=== PATIENT | female | born 1990 | race Caucasian/White ===

== ENCOUNTER 2025-06-06 10:17 | Emergency (ER) | payer OTHER, MEDICAID, SELFPAY ==
[2025-06-06] VITALS (22 sets, daily range): BP systolic 113–135; BP diastolic 79–91; PULSE 57–91; RESP 16–18; TEMP 36.8; O2SAT 96–100; BMI 30.4
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
[2025-06-06] MEDS: ONDANSETRON 2 MG/ML inj 4 MG IVP (10:51)
--- OUTSIDE RECORDS SUMMARY | 2025-06-06 11:11 | XMS_ITS | Clinical Summary ---
Author Organization [facility] Address [address] [place] [address] Care Team Providers Care Campaign Specialist Name Role Phone Edith Harman DO Primary Care Provider [phone] Zoraida Rendon MBBS Unavailable [phone] Allergies No known active allergies Medications ondansetron (ZOFRAN ODT) 4 mg disintegrating tabletIndications: Migraine with aura and without status migrainosus, not intractable Place 1 Tablet (4 mg) on the tongue every 8 hours if needed for Nausea/Vomiting. 30 Tablet 08/04/20 23 Active fremanezumab-vfrm (Ajovy Autoinjector) 225 mg/1.5 mL subcutaneous pen Inject 225 mg subcutaneous every 4 weeks. Do not shake. Administer in abdomen, thigh, or upper arm. Active fremanezumab-vfrm (AJOVY) 225 mg/1.5 mL subcutaneous penIndications:Helio lemuel without aura and with status migrainosus, not intractable Inject 1.5 mL (225 mg) subcutaneous every 4 weeks. Do not shake. Administer in abdomen, thigh, or upper arm. 3 Each 3 10/04/19 25 Active SUMAtriptan (IMITREX) 50 mg tabletIndications: Migraine without aura and with status migrainosus, not intractable,Migrai ne with aura, not intractable, without status migrainosus Take 1 Tablet (50 mg) by mouth 2 times daily if needed for Migraine. Give at minimum 2hrs apart. Max Dose: 200mg per 24hrs. 10 Tablet 3 10/04/19 25 Active durable medical equipment (DME)Indications:S prain of anterior talofibular ligament of left ankle, subsequent encounter,High ankle sprain of left lower extremity, subsequent encounter Medium ASO 02/15/20 25 Active CPAPIndications:OS A (obstructive sleep apnea) CPAP (E0601) at 5-20 (EPR 3). Heated Humidifier (E0562), Choice of mask (A7030 or A7034) w/full face cushion (A7031) x1/mo, nasal cushion (A7032) x2/mo, or nasal pillows (A7033) x 2/mo; headgear (A7035), standard tubing (A7037), or heated tubing (A4604); Water chamber (A7046); filter(s) disposable (A7038) or nondisposable (A7039); all needed repairs (E1399), temp rental for lifetime (K0462), Labor lifetime (K0739) Length of Need: 99 months; Frequency of use: Daily 1 Each 11 04/18/20 25 Active albuterol HFA (PRO-AIR; VENTOLIN; PROVENTIL) 90 mcg/actuation inhalerIndications :Acute cough Inhale 1-2 Puffs by mouth every 4 hours if needed for Shortness Of Breath or Wheezing. 3 Each 3 06/05/20 25 Active codeine-guaiFENesi n 10-100 mg/5 mL liquidIndications: Acute cough Take 5 mL by mouth every 4 hours if needed for Cough. 100 mL 06/05/20 25 Active Active Problems Problem Noted Date Diagnosed Date Tobacco use 09/07/2023 Bipolar disorder 08/04/2023 Overview (03/07/2025): AI Summary: The patient's history included bipolar disorder, which was diagnosed at a young age, and the patient was attending therapy sessions at [facility] as of 06/26/2024. Mirtazapine and olanzapine were prescribed on 08/04/2023 for bipolar affective disorder, remission status unspecified. Recent encounter dx: 09/27/24: [facility] 09/19/24: Appointment - [facility] 09/12/24: [facility] 09/12/24: Appointment - [facility] 09/07/23: Appointment - [facility] Recent notes: 11/25/24: Progress Notes by ABISAI Fischer ... [+] ? Bipolar disorder (HC) F31.9 10/23/24: Progress Notes by Edith Harman DO ... [+] ? Bipolar disorder (HC) 09/27/24: Initial Assessments - Physical Therapy - Outpatient Initial Assessment by Lois Kaur, SHANTANU ... [-] List Comorbidities influencing the plan of care: Psychiatry Bipolar disorder (HC) Depression PTSD (post-traumatic stress disorder) Fibromyalgia 09/19/24: Progress Notes - [facility] Note by Manuel Kelley DPM ... [+] ? Bipolar affective disorder, remission status unspecified (HC) 09/12/24: Progress Notes - [facility] Note by Manuel Kelley DPM ... [+] Bipolar affective disorder, remission status unspecified (HC) F31.9 AMB FOLLOWUP APPT Depression 08/04/2023 Fibromyalgia 08/04/2023 Migraine 08/04/2023 PCOS (polycystic ovarian syndrome) 08/04/2023 PTSD (post-traumatic stress disorder) 08/04/2023 Encounters Date Type Department Care Team Description 06/05/2025 12:30 PM CDT Office Visit [facility] [place] [address] [place] [phone] Fatou Cazares, MULTIPLE LAUNCH ROCKET SYSTEM CREWMEMBER Throat Problem 06/05/2025 Travel 04/25/2025 Telephone [facility] AISHWARYA Munoz [address] [place] [phone] Stacie Anand, PT 04/22/2025 Refill [facility] [place] [facility] [address] [place] [address] Arias Mcdaniel MD Refill Request (Ajovy Autoinjector) 04/16/2025 Telephone [facility] AISHWARYA Munoz [address] [place] [address] Rodri Hong, PT Failed Appointment 04/06/2025 1:15 PM CDT Office Visit [facility] [address] [place] [address] Junior Yang MD Follow Up (Sprain of anterior talofibular ligament of left ankle, subsequent encounter) 04/05/2025 Travel 04/02/2025 Procedure Only [facility] [address] [facility] [place] [phone] Asaf Overton MD Results (HST WatchPAT) 03/28/2025 4:30 PM CDT Nurse/Clinic Staff Only [facility] [address] [place] [address] Testing (WatchPAT accounts receivable specialist) 03/28/2025 1:09 PM CDT - 03/28/2025 11:59 PM CDT Hospital Encounter [facility] [address] [place] [address] Junior Yang MD Baker, Joshua, PT 03/28/2025 Travel 03/26/2025 3:15 PM CDT Orders Only [facility] [address] [place] [address] Lab, [facility] 03/26/2025 Travel 03/23/2025 Travel 03/21/2025 12:11 PM CDT - 03/21/2025 11:59 PM CDT Hospital Encounter [facility] [address] [place] [address] Junior Yang MD Mueller, Laura C, PT 03/21/2025 Travel 03/14/2025 1:54 PM CDT - 03/14/2025 11:59 PM CDT Hospital Encounter [facility] AISHWARYA [place]oz [address] [place] [address] Junior Yang MD Baker, Joshua, PT 03/14/2025 Travel 03/07/2025 8:40 AM CDT Office Visit [facility] [address] [place] [address] Edith Harman DO Form ([facility] nursing) 03/07/2025 Travel from Last 3 Months Immunizations Immunization Administration Dates Next Due COVID-19 VACCINE SPIKEVAX (M ODERNA 50MCG/0.5ML) 12YO+ PFS 06/26/2024 INFLUENZA, IIV3 PF (AGE >= 6 MO) 06/26/2024 Influenza, IIV4 08/04/2023 Tdap 2017 Family History Medical History Relation Name Comments Diabetes type II Father Hyperlipidemia Father Hypertension Father Cervical cancer Mother Diabetes type II Mother Heart attack Mother Hyperlipidemia Mother Hypertension Mother Relation Name Status Comments Father Mother Social History Tobacco Use Types Packs/Day Years Used Date Smoking Tobacco: Every Day Cigarettes 0.5 14.8 Started: 2010 Smokeless Tobacco: Never Tobacco Cessation:Ready to Q uit: No; Counseling Given: Yes Comments:trying to ween down- 09/06/2023 Alcohol Use Standard Drinks/Week Comments Not Currently 0 (1 standard drink = 0.6 oz pur e alcohol) 2014 PHQ-2 Answer Date Recorded PHQ-2 TOTAL SCORE 0 10/23/2024 Social Connections Answer Date Recorded Do you often feel lonely or isolated from those around you? 0 08/29/2024 Financial Resource Strain Answer Date R ecorded Difficulty of Paying Living Expenses 3 08/29/2024 Difficulty of Paying Living Expenses Not on file 08/29/2024 Food Insecurity Answer Date Recorded Do you worry your food will run out before you are able to buy more? 1 08/29/2024 Transportation Needs Answer Date Record ed Does lack of transportation keep you from medica l appointments? 1 08/29/2024 Does lack of transportation keep you from work, meetings or getting things that you need? 1 08/29/2024 Housing Stability Answer Date Recorded What is your housing situation today? 1 08/29/2024 Interpersonal Safety Answer Date Record ed Are you being hit, kicked, p ushed or yelled at (see row info)? No 12/18/2024 Interpersonal Safety Abuse 12 - 18 Not on file 12/18/2024 Interpersonal Safety Ambulatory Vulnerability No t on file 12/18/2024 Utilities Answer Date Recorded Do you have trouble paying f or utilities (for example, heat, electricity, water, phone)? 1 08/29/2024 Comments No Sex and Gender Information Value Date Recorded Sex Assigned at Not on file Legal Sex Female 11:26 AM HOME TEACHING GRADES 9 THRU 12 TEACHER Gender Identity Not on file Sexual Orientation Not on file Obstetrics History Para Term AB IAB SAB Ectopic Multiple Livin g Live Births 7 2 2 5 2 Date Outcome GA Total Labor Labor/2nd/3rd Weight Sex Type Anes PTL Jacqui A1 A5 Name Clin Term Term AB AB AB AB AB Comments 2018 2010 Last Filed Vital Signs Vital Sign Reading Time Taken Comments Blood Pressure 116/80 06/05/2025 12:40 PM CDT Pulse 70 06/05/2025 12:40 PM CDT Temperature 36.6 C (97.8 F) 06/05/2025 12:40 PM CDT Respiratory Rate 18 06/05/2025 12:40 PM CDT Oxygen Saturation 100% 06/05/2025 12:40 PM CDT Inhaled Oxygen Concentration - - Weight 94.8 kg (209 lb) 06/05/2025 12:40 PM CDT Height 172.4 cm (5' 7.87) 03/07/2025 8:48 AM CD T Body Mass Index 31.9 03/07/2025 8:48 AM CDT Plan of Treatment Upcoming Encounters Date Type Department Care Team (Late st Contact Info) Description 06/17/2025 1:15 PM HOME TEACHING GRADES 9 THRU 12 TEACHER Nurse/Clinic Staff Only [facility] [address] [place] [address] 08/22/2025 2:00 PM HOME TEACHING GRADES 9 THRU 12 TEACHER Telemedicine [facility] [address] [place] [phone] Ariana Morgan NP [address] [place] [address] Health Maintenance Due Date Last Done Comments Hepatitis B series for 19+ ( 1 of 3 - 19+ 3-dose series) 2011 Pneumococcal series for age 6-49 (1 of 2 - PCV) 2011 HPV series for age 9-45 (1 - 3-dose SCDM series) 2019 Influenza Vaccine (#1) 2025 06/26/2024, 2022 Depression screening for age 12+ 10/25/2025 10/25/2024, 10/23/2024, 10/23/2024, Additional history exists BMI (ht and wt on same day) for age 18+ 03/07/2026 03/07/2025, 06/26/2024, 04/27/2024, Additional history exists Tetanus booster 2027 2017 RSV vaccine for adults or (1 - 1-dose 75+ series) 2067 HIV for age 15-65 Completed 10/23/2024, 09/09/2023 Hepatitis C screening for ag e 18-79 Completed 10/23/2024, 09/09/2023 Procedures Procedure Name Priority Date/Time Associated Diagnosis Comments CBC WITH AUTO DIFFERENTIAL Routine 06/05/2025 1:06 PM CDT Upper respiratory tract infection, unspecified type CBC WITH AUTO DIFFERENTIAL Routine 06/05/2025 1:06 PM CDT Upper respiratory tract infection, unspecified type ISTAT CHEM 8 Routine 06/05/2025 1:06 PM CDT Upper respiratory tract infection, unspecified type STREP A PCR Routine 06/05/2025 12:43 PM CDT Upper respiratory tract infection, unspecified type THROAT RAPID STREP ONLY CLINIC Routine 06/05/2025 12:43 PM CDT Upper respiratory tract infection, unspecified type INFLUENZA A/B PCR Routine 06/05/2025 12: 40 PM CDT Upper respiratory tract infection, unspecified type COVID-19 MOLECULAR Routine 06/05/2025 12 :40 PM CDT Upper respiratory tract infection, unspecified type HOME SLEEP TEST TYPE 3 PORTABLE Routine 04/02/2025 11:59 PM CDT Snoring Daytime somnolence At risk for obstructive sleep apnea Obesity (BMI 30-39.9) QUANTIFERON -TB GOLD PLUS 1 TUBE ([facility]) Routine 03/26/2025 3:11 PM CDT Encounter for TB mary test ANTI HIV 1/2 Routine 10/23/2024 9:37 AM CDT Screen for STD (sexually transmitted disease) ANTI HCV Routine 10/23/2024 9:37 AM CDT Screen for STD (sexually transmitted disease) from Last 3 Months or Most Recently Relevant to Health Maintenance Results * CBC WITH AUTO DIFFERENTIAL (06/05/2025 1:06 PM CDT) [facility] WHITE BLOOD CELL COUNT 9.6 3.8 - 10.8 Thousand/u L 06/05/2025 1:28 PM CDT [facility] RED BLOOD CELL COUNT 4.62 3.80 - 5.10 Million/uL 06/05/2025 1:28 PM CDT [facility] HEMOGLOBIN 13.4 11.7 - 15.5 g/dL 06/05/2025 1:28 PM CDT [facility] HEMATOCRIT 41.1 35.0 - 45.0 % 06/05/2025 1:28 PM CDT [facility] MCV 89.0 80.0 - 100.0 fL 06/05/2025 1:28 PM CDT [facility] MCH 29.0 27.0 - 33.0 pg 06/05/2025 1:28 PM CDT [facility] MCHC 32.6 32.0 - 36.0 g/dL 06/05/2025 1:28 PM CDT [facility] Comment: For adults, a slight decrease in the calculated MCHC value (in the range of 30 to 32 g/dL) is most likely not clinically significant; however, it should be interpreted with caution in correlation with other red cell parameters and the patient's clinical condition. RDW 12.1 11.0 - 15.0 % 06/05/2025 1:28 PM CDT [facility] PLATELET COUNT 296 140 - 400 Thousand/u L 06/05/2025 1:28 PM CDT [facility] MPV 10.5 7.5 - 12.5 fL 06/05/2025 1:28 PM CDT [facility] NEUTROPHILS 61.7 % 06/05/2025 1:28 PM CDT [facility] LYMPHOCYTES 28.7 % 06/05/2025 1:28 PM CDT [facility] MONOCYTES 6.7 % 06/05/2025 1:28 PM CDT [facility] EOSINOPHILS 2.6 % 06/05/2025 1:28 PM CDT [facility] BASOPHILS 0.3 % 06/05/2025 1:28 PM CDT [facility] ABSOLUTE NEUTROPHILS 5923 1500 - 7800 cells/uL 06/05/2025 1:28 PM CDT [facility] ABSOLUTE LYMPHOCYTES 2755 850 - 3900 cells/uL 06/05/2025 1:28 PM CDT [facility] ABSOLUTE MONOCYTES 643 200 - 950 cells/uL 06/05/2025 1:28 PM CDT [facility] ABSOLUTE EOSINOPHILS 250 15 - 500 cells/uL 06/05/2025 1:28 PM CDT [facility] ABSOLUTE BASOPHILS 29 0 - 200 cells/uL 06/05/2025 1:28 PM CDT [facility] Blood BLOOD SPECIMEN / Unknown [facility] / Unknown 06/05/2025 1:06 PM CDT 06/05/2025 1:22 PM CDT Fatou Cazares MULTIPLE LAUNCH ROCKET SYSTEM CREWMEMBER HEMATOLOGY Final Result [facility] [address] [place] [address], [place] [phone] [facility] [address] [place] [address], [place] [phone] * (ABNORMAL) ISTAT CHEM 8 BMP (06/05/2025 1:06 PM CDT) POCT, SODIUM, ISTAT 140 138 - 146 mmol/L 06/05/2025 1:16 PM CDT [facility] POCT, POTASSIUM, ISTAT 3.8 3.5 - 4.9 mmol/L 06/05/2025 1:16 PM CDT [facility] POCT, CHLORIDE, ISTAT 103 98 - 109 mmol/L 06/05/2025 1:16 PM CDT [facility] POCT, CARBON DIOXIDE, ISTAT 23(L) 24 - 29 mmol/L 06/05/2025 1:16 PM CDT [facility] POCT, GLUCOSE ISTAT 92 70 - 105 mg/dL 06/05/2025 1:16 PM CDT [facility] POCT, CALCIUM, IONIZED, ISTAT 5.1 4.5 - 5.3 mg/dL 06/05/2025 1:16 PM CDT [facility] POCT, UREA NITROGEN (BUN) ISTAT 8 8 - 26 mg/dL 06/05/2025 1:16 PM CDT [facility] POCT,CREATININE , ISTAT 0.8 0.6 - 1.3 mg/dL 06/05/2025 1:16 PM CDT [facility] Blood BLOOD SPECIMEN / Unknown [facility] / Unknown 06/05/2025 1:06 PM CDT 06/05/2025 1:06 PM CDT Fatou Cazares NP CHEMISTRY Final Result [facility] [address] [place] [address], [place] [phone] [facility] [address] [place] [address], [place] [phone] * STREP A PCR (06/05/2025 12:43 PM CDT) Pathologist [facility] GROUP A STREP Negative 06/05/2025 7:11 PM CDT [facility] Throat SPECIMEN FROM THROAT / Unknown Non-Blood / Unknown 06/05/2025 12:43 PM CDT 06/05/2025 2:07 PM CDT us Fatou Cazares NP MICROBIOLOGY Final Result [facility] [address] [place] [address], [place] * POCT Throat Rapid Strep (06/05/2025 12:43 PM CDT) Pathologist [facility] POC, GROUP A STREP NOT DETECTED NOT DETECTED 06/05/2025 2:15 PM CDT [facility] Comment: The [place] [employer] recommends that a throat culture be performed if a rapid group A streptococcus assay yields a negative result. [email or web address] recommends Streptococcus, Group A culture. Throat SPECIMEN FROM THROAT / Unknown Non-Blood / Unknown 06/05/2025 12:43 PM CDT 06/05/2025 2:06 PM CDT Fatou Cazares NP MICROBIOLOGY Final Result [facility] [address] [address], [place] [phone] [facility] [address] [place] [address], [place] [phone] * COVID-19 MOLECULAR (06/05/2025 12:40 PM CDT) [facility] COVID 19 [facility] MOLECULAR Negative Negative 06/06/2025 12:44 AM CDT [facility]- NTRAL LABORATORY TESTING LABORATORY [facility] 06/06/2025 12:44 AM CDT [facility] Comment:Specimen submitted t o [facility] for testing. Other SPECIMEN FROM NASAL FOSSAE / Unknown Non-Blood / Unknown 06/05/2025 12:40 PM CDT 06/05/2025 2:07 PM CDT Narrative [facility] - 06/06/2025 12:44 AM CDT All PCR tests are subject to false negative result due to variability in viral load and collection technique. A negative result does not rule out a SARS-CoV-2 infection. Clinical correlation required. Fatou Cazares NP MICROBIOLOGY Final Result Performing Organization Address [facility] Co de Phone Number [facility] [address] [place] [address], * INFLUENZA A/B PCR (06/05/2025 12:40 PM CDT) INFLUENZA A PCR Negative 06/06/2025 12:44 AM CDT [facility] INFLUENZA B PCR Negative 06/06/2025 12:44 AM CDT [facility] Other SPECIMEN FROM NASAL FOSSAE / Unknown Non-Blood / Unknown 06/05/2025 12:40 PM CDT 06/05/2025 2:07 PM CDT Fatou Cazares NP MICROBIOLOGY Final Result Performing Organization Address [facility] Co de Phone Number [facility] [address] [address], [place] * HOME SLEEP TEST TYPE 3 PORTABLE (04/02/2025 11:59 PM CDT) Narrative Asaf Overton MD - 04/02/2025 11:59 PM CDT Asaf Overton MD 04/13/2025 9:49 AM Home Sleep Test Name: Bessy Pickard : 1990 Gender: Female BMI: 32.2 (W=205 lb, H=5' 7'') Study Date: 04/02/2025 Location: [facility] Study notes: This is a single night home sleep apnea test. The study is performed in the context of a clinical suspicion for sleep apnea. Bessy Pickard (1990) is studied using a WatchPAT Device with monitoring of PAT (peripheral arterial tone), pulse rate, pulse oximetry, actigraphy, respiratory effort, body position, and snoring. The study is scored by a RPSGT and interpreted by a Diplomate of the [place] Board [employer]. Review of the raw data has been performed by the interpreting physician. Scored following the most current version of the AASM Manual for the Scoring of Sleep and Associated Events. Start Study Time: 10:16:48 PM End Study Time: 6:30:44 AM Total Study Time: 8 hrs, 13 min Estimated Sleep Time: 7 hrs, 20 min Technically Valid Sleep Time: 7 hrs, 19 min. Estimated Sleep Latency (min): 19 Estimated % Sleep Time in REM: 35.5% Sleep Summary Oxygen Saturation Statistics Mean Saturation: 95% Minimum: 87% Time below <88: 0.1, 0.0% Respiratory Indices pAHI 3%: 8.3 pAHI 4%: 4.7 pAHIc: 0.0 KIMI: 3.6 LOADER SEMICONDUCTOR DIES(%): 0.0 Additional Comments: None IMPRESSION Obstructive Sleep Apnea (327.23, G47.33) RECOMMENDATIONS: - A pRDI and/or pAHI3% is not accepted by all payors, including Medicare. - Mild sleep apnea is discovered. If there is low clinical suspicion of sleep apnea, this could be a false positive. Polysomnography could be considered. - Mild sleep apnea only needs treatment in the presence of attributable sleepiness. In the absence of symptoms, treatment may not be indicated. Clinical correlation is recommended. - Treatment options for mild sleep apnea include CPAP, a mandibular advancement device, lifestyle modifications such as weight loss, sedative/alcohol avoidance, avoiding supine sleep and surgical therapies can be considered in highly selected patients. - Consider a health weight referral for patients with a BMI > 30. - Follow-up with a provider to discuss results is recommended. - Patients should be advised to avoid critical tasks, such as driving, whenever drowsy. - Patients should try to achieve at least 7-8 hours of sleep on a consistent basis. Asaf Overton MD .................... 04/13/2025 9:49 AM Diplomate, Board of Sleep Medicine Oxygen Saturation: <90 - 0.5 minutes, 0.1% <88 - 0.1 minutes, 0.0% <85 - 0.0 minutes, 0.0% <80 - 0.0 minutes, 0.0% <70 - 0.0 minutes, 0.0% Oxygen Desaturation (number of events): 4-9% - 26 events 10-20% - 0 events >20% - 0 events Respiratory Indices pAHI 3%: All Night - 8.3 REM - 17.0 NonREM - 3.6 Total Events - 61 pAHI 4%: All Night - 4.7 pAHIc: All Night - 0.0 REM - 0.0 NonREM - 0.0 Total Events - 0 KIMI: All Night - 3.6 REM - 6.6 NonREM - 1.9 Total Events - 26 LOADER SEMICONDUCTOR DIES(%): 0.0 Pulse Rate Statistics during Sleep (BPM) Mean: 74 Minimum: 55 Maximum: 112 Body Position Statistics Supine Sleep time(min): 420.5 Sleep time (%): 95.4 pAHI: 8.3 KIMI: 3.7 Prone Sleep time(min): 3.9 Sleep time (%): 0.9 pAHI: N/A KIMI: N/A Right Sleep time(min): 3.0 Sleep time (%): 0.7 pAHI: N/A KIMI: N/A Left Sleep time(min): 13.5 Sleep time (%): 3.1 pAHI: 9.1 KIMI: 0.0 Snoring Statistics Snoring level (dB) >40 Sleep time (min): 189.7 Sleep time (%): 43.0 >50 Sleep time (min): 12.1 Sleep time (%): 2.7 >60 Sleep time (min): 0.6 Sleep time (%): 0.1 >70 Sleep time (min): 0.0 Sleep time (%): 0.0 >80 Sleep time (min): 0.0 Sleep time (%): 0.0 Threshold(45) Sleep time (min): 80.3 Sleep time (%): 18.2 Ariana Morgan M[employer]IPLE LA[employer]CH ROCK[employer] SYSTEM [facility] Final Resul t * QUANTIFERON??-TB GOLD PLUS 1 TUBE ([facility]) (03/26/2025 3:11 PM CDT) Pathologist [facility] QUANTIFERON(R)-T B GOLD PLUS, 1 TUBE NEGATIVE NEGATIVE [facility] [place] Comment: Negative test result. M. tuberculosis complex infection unlikely. NIL 0.01 IU/mL [facility] [place] MITOGEN-NIL 6.87 IU/mL [facility] TB1-NIL 0.00 IU/mL [facility] TB2-NIL 0.00 IU/mL [facility] Comment: The Nil tube value reflects the background interferon gamma immune response of the patient's blood sample. This value has been subtracted from the patient's displayed TB and Mitogen results. Lower than expected results with the Mitogen tube prevent false-negative Quantiferon readings by detecting a patient with a potential immune suppressive condition and/or suboptimal pre-analytical specimen handling. The TB1 Antigen tube is coated with the M. tuberculosis-specific antigens designed to elicit responses from TB antigen primed CD4+ helper T-lymphocytes. The TB2 Antigen tube is coated with the M. tuberculosis-specific antigens designed to elicit responses from TB antigen primed CD4+ helper and CD8+ cytotoxic T-lymphocytes. For additional information, please refer to [email or web address] (This link is being provided for informational/ educational purposes only.) Blood BLOOD SPECIMEN / Unknown 03/26/2025 3:11 PM CDT 03/26/2025 3:11 PM CDT Edith Cornelnargis SEND OUTS Final Result [facility] [address] [place] [address], [email or web address] [address] [place] [address] * ANTI HCV [60712.2] (10/23/2024 9:37 AM CDT) HEPATITIS C ANTIBODY NON-REACTI VE NON-REACT ELENA [facility] Comment: HCV antibody was non-reactive. There is no laboratory evidence of HCV infection. In most cases, no further action is required. However, if recent HCV exposure is suspected, a test for HCV RNA (test code 55519) is suggested. For additional information please refer to http://Bangcle.Shyp/faq/XDJ17c6 (This link is being provided for informational/ educational purposes only.) Blood BLOOD SPECIMEN / Unknown 10/23/2024 9:37 AM CDT 10/23/2024 9:38 AM CDT [facility] DO SEND OUTS Final Result Performing Organization Address [facility] Co de Phone Number [employer] [facility] [address] [place] [address], [email or web address] [address] [place] [place] [address] * ANTI HIV 1/2 [95728.0] (10/23/2024 9:37 AM CDT) [facility] HIV AG/AB, 4TH GEN NON-REACT ELENA NON-REACT ELENA [employer] [place] Comment: HIV-1 antigen and HIV-1/HIV-2 antibodies were not detected. There is no laboratory evidence of HIV infection. PLEASE NOTE: This information has been disclosed to you from records whose confidentiality may be protected by state law. If your state requires such protection, then the state law prohibits you from making any further disclosure of the information without the specific written consent of the person to whom it pertains, or as otherwise permitted by law. A general authorization for the release of medical or other information is NOT sufficient for this purpose. For additional information please refer to http://education.Hooked.[employer]/faq/MPO540 (This link is being provided for informational/ educational purposes only.) The performance of this assay has not been clinically validated in patients less than 2 years old. Blood BLOOD SPECIMEN / Unknown 10/23/2024 9:37 AM CDT 10/23/2024 9:38 AM CDT [facility] DO SEND OUTS Final Result Performing Organization Address City/[facility]/ZIP Co de Phone Number [employer] [facility] [address] [place] [address], [facility] [address] [place] [address] from Last 3 Months or Most Recently Relevant to Health Maintenance Insurance [facility] Care Teams Campaign Specialist Relationship Specialty Start Date End Date Edith Harman DO PCP - General Family Practice 08/04/23 Zoraida Rendon MBBS [phone] [id number] Endocrinology 08/31/24
[2025-06-06] MEDS: KETAMINE 50 MG/0.5 ML 20 MG in 0.9 % SODIUM CHLORIDE 100 ml 100 ML 200.4 MG IVPB (12:57)
== END 2025-06-06 14:03 | disposition home or self-care (01) ==
PROVIDERS: Emergency Provider Family Medicine
DX: S13.9XXA Sprain of joints and ligaments of unspecified parts of neck, initial encounter (principal); G44.209 Tension-type headache, unspecified, not intractable; V43.52XA Car driver injured in collision with other type car in traffic accident, initial encounter; W22.11XA Striking against or struck by driver side automobile airbag, initial encounter
CPT/HCPCS: 99284; 99291; G0390; J1200; J1885; J2405; J3490; J7030